=== PATIENT | female | born 1970 | race American Indian/Alaskan Native ===

== ENCOUNTER 2022-04-03 07:42 | Day surgery (SDC) | payer BC ==
[2022-04-03 08:58] LABS: Basophils % (Auto) 0.7 % (0.0-1.8); Eosinophils # (Auto) 0.1 K/mm3 (0.0-0.4); Eosinophils % (Auto) 1.8 % (0.0-4.3); Lymphocytes # (Auto) 2.2 K/mm3 (1.2-5.4); Lymphocytes % (Auto) 33.4 % (13.4-35.0); Mean Corpuscular HGB Conc 32 % (30-34); Mean Corpuscular Volume 87 fl (79-97); Monocytes # (Auto) 0.8 K/mm3 (0.0-0.8); Monocytes % (Auto) 11.4 % (0.0-7.3); Platelet Count 181 K/mm3 (140-440); Red Blood Count 3.92 M/mm3 (3.65-5.03); Red Cell Distribution Width 15.1 % (13.2-15.2)
[2022-04-03] MEDS ORDERED: ASPIRIN EC 325 MG TAB PO NR (09:00)
[2022-04-03 09:09] LABS: Blood Urea Nitrogen 11 mg/dL (7-17); Calcium 8.9 mg/dL (8.4-10.2); Hemolysis Index 184
[2022-04-03 09:17] LABS: INR 0.97 (0.87-1.13)
[2022-04-03 09:18] LABS: Partial Thromboplastin Time 27.6 Sec. (24.2-36.6)
[2022-04-03 09:26] LABS: BUN/Creatinine Ratio 22
[2022-04-03] MEDS: SODIUM CHLORIDE 0.9% 500 ML 500 ML IV SCH ×3 (09:46→10:40)
[2022-04-03] MEDS ORDERED: HEPARIN/NS 5000 UNIT/500ML 500 ML IR ONE (10:06)
[2022-04-03] MEDS ORDERED: HEPARIN 10,000 UNITS/10 ML VIAL ONE (10:07)
[2022-04-03] MEDS ORDERED: VERAPAMIL 5 MG/2 ML INJ ONE (10:09)
[2022-04-03] MEDS: MIDAZOLAM 2 MG/2 ML INJ ONE ×2 (10:09→10:39)
[2022-04-03] MEDS: fentaNYL 100 MCG/2 ML INJ ONE ×3 (10:09→10:45)
[2022-04-03] MEDS: NITROGLYCERIN SYRINGE 3 ML ONE ×2 (10:10→10:45)
[2022-04-03] MEDS ORDERED: LIDOCAINE (2%) 20 MG/1 ML VIAL 20 ML MDV INFILTRATI ONE (10:22)
[2022-04-03] MEDS ORDERED: traMADol 50 MG TAB PO PRN (11:20)
--- NOTE | 2022-04-03 11:25 | Discharge Summary ---
Short Stay Discharge Plan Activity: advance as tolerated Diet: low fat, low cholesterol, low salt, diabetic Wound: keep clean and dry Special Instructions: no heavy lifting (3 days), hold Metformin (48hrs) Additional Instructions: HOLD METFORMIN 48HRS Follow up with: CHAYO ABDALLA [Other] - 7 Days BERNARDO GARAY MD [Staff Physician] - 7 Days
--- NOTE | 2022-04-03 11:26 | Cardiac Catherization Report ---
DATE OF SERVICE: 04/03/2022 CARDIAC CATHETERIZATION REPORT REASON FOR PROCEDURE: The patient is a 51-year-old woman with diabetes, who presented with unstable angina, consisting of progressive exertional chest pain, fatigue. Cardiac catheterization was recommended. PROCEDURES: 1. Left heart catheterization. 2. Selective left and right coronary angiography. 3. Left ventricular angiography. 4. Sedation time start 10:39, end 10:56. DESCRIPTION OF PROCEDURE: The patient was prepped and draped in a sterile fashion after informed consent. The right radial cath site was prepped and draped after negative Mariano's test. Right radial artery was entered using Seldinger technique followed by placement of a 6-Bengali hydrophilic sheath. Routine radial cocktail was administered via the sheath. Selective left and right coronary angiography was performed, with a #3.5 left Michelle and a #4 right Michelle. The pigtail catheter was used for left ventricle angiography. The catheters were then removed, sheath removed and hemostasis achieved using a TR band. The patient was returned to the postprocedure unit in stable condition. There were no complications. FINDINGS: HEMODYNAMICS: Left ventricular end-diastolic pressure was 20-25, following coronary angiography. Ascending aortic pressure was 125/69. There was no significant pressure gradient on pullback across the aortic valve. CORONARY ANGIOGRAPHY: The left main coronary artery was angiographically normal. Left anterior descending artery and its diagonal branches were angiographically normal. The left circumflex artery was codominant with the right coronary artery and this vessel and its obtuse marginal branches as well as a left posterior descending branch were also angiographically normal. The right coronary artery was a smaller caliber vessel, codominant with the circumflex, and also angiographically normal. There was normal left ventricular systolic function, with left ventricular ejection fraction 60-65%. CONCLUSION: 1. Angiographically normal coronary arteries. 2. Normal left ventricular systolic function, ejection fraction 60%-65%. RECOMMENDATIONS: Risk factor modification and medical therapy. TID: [id number] RECEIPT: [id number] CA/DSD
[2022-04-03] MEDS ORDERED: SODIUM CHLORIDE 0.9% 1000 ML 1,000 ML IV SCH (11:30)
[2022-04-03] MEDS ORDERED: ACETAMINOPHEN 500 MG TAB PO ONE (14:00)
[2022-04-03] MEDS ORDERED: ACETAMINOPHEN 500 MG TAB ONE (14:12)
[2022-04-03 15:49] VITALS: BP 128/80
--- NOTE | 2022-04-03 17:41 | Electrocardiograph Report ---
[facility] Test Date: 2022-04-03 Test Time: 09:22:07 Pat Name: MARCOS LIU Department: Room: Gender: F It Application Architect: TORIE : [id number] Requested By: BERNARDO GARAY Order Number: [id number] Reading MD: Bernardo Garay Measurements Intervals [place] Rate: 95 P: 65 OK: 138 QRS: 58 QRSD: 77 T: 43 QT: 351 QTc: 442 Interpretive Statements Sinus rhythm No previous ECG available for comparison Electronically Signed On 04-03-2022 17:41:10 EDT by Bernardo Garay
== END 2022-04-03 15:15 | disposition home or self-care (01) ==
LOC: CATHLABREC 07:42
PROVIDERS: ATTEND Internal Medicine Cardiovascular Disease
DX: I20.0 Unstable angina (principal); R53.83 Other fatigue; E66.9 Obesity, unspecified; D64.9 Anemia, unspecified; Z83.3 Family history of diabetes mellitus; Z98.890 Other specified postprocedural states; Z79.899 Other long term (current) drug therapy; Z90.12 Acquired absence of left breast and nipple; Z79.82 Long term (current) use of aspirin; Z68.39 Body mass index [BMI] 39.0-39.9, adult
CPT/HCPCS: 36415; 80048; 85025; 85610; 85730; 93005; 93458; 99156; C1894; C8929; J1644; J1815; J2250; J3010; J3490; J7040; 93306; Q9967